=== PATIENT | female | born 1995 | race Caucasian/White ===

== ENCOUNTER 2019-10-21 10:30 | Emergency (ER) | payer OTHER ==
[~2019-10-21] VITALS: Ht 162.6 cm; Wt 80.7 kg
[2019-10-21 10:46] VITALS: BP_SYST 109
== END 2019-10-21 14:05 | disposition other institution (70) ==
LOC: SED 10:30 → SPU 12:54 → SED 14:05
DX: O26.892 Other specified pregnancy related conditions, second trimester (principal); Z04.1 Encounter for examination and observation following transport accident; Z3A.24 24 weeks gestation of pregnancy; V89.2XXA Person injured in unspecified motor-vehicle accident, traffic, initial encounter; Y93.89 Activity, other specified; Y92.89 Other specified places as the place of occurrence of the external cause; Y99.8 Other external cause status; Z53.21 Procedure and treatment not carried out due to patient leaving prior to being seen by health care provider

== ENCOUNTER 2020-01-06 19:25 | Observation (INO) | payer OTHER | END 2020-01-06 23:28 | disposition home or self-care (01) | LOC: SPU 19:25 | PROVIDERS: ADMIT Specialist; ATTEND Specialist | DX: O36.8130 Decreased fetal movements, third trimester, not applicable or unspecified (principal); O62.9 Abnormality of forces of labor, unspecified; Z3A.38 38 weeks gestation of pregnancy | CPT/HCPCS: 76819; G0378 ==

== ENCOUNTER 2020-01-09 13:34 | Outpatient (CLI) | payer OTHER, SELFPAY ==
--- NOTE | 2020-01-13 13:35 | NUR ---
Patient called [facility] for her COVID-19 "Negative" test results. She was instructed to follow preventive measures ([place] [employer]). Patient verbalizes understanding.
== END 2020-01-09 20:00 | disposition home or self-care (01) ==
LOC: SLB 13:34 → EDSTATUS 01-20 12:44
PROVIDERS: ATTEND Specialist
DX: Z20.828 Contact with and (suspected) exposure to other viral communicable diseases (principal)
CPT/HCPCS: U0003-CS

== ENCOUNTER 2020-01-18 11:12 | Inpatient (IN) | payer OTHER, SELFPAY ==
[~2020-01-18] VITALS: Ht 175.3 cm; Wt 83.9 kg
[2020-01-18] MEDS ORDERED: TERBUTALINE SULFATE 1 MG/ML VIAL SUBCUT ONE (11:30)
[2020-01-18] MEDS ORDERED: OXYTOCIN/0.9 % SODIUM CHLORIDE 1,000 ML IV SCH (11:30)
[2020-01-18] MEDS ORDERED: LR 1,000 ML IV SCH ×2 (11:30→19:15)
[2020-01-18 11:55] LABS: BASOPHILS % (AUTO) 0.2 % (0.0-2.0); EOSINOPHILS % (AUTO) 0.3 % (0.0-4.0); HEMATOCRIT 38.8 % (36-48); HEMOGLOBIN 13.1 g/dL (12.0-16.0); LYMPHOCYTES # (AUTO) 1.4 K/uL (1.0-5.5); LYMPHOCYTES % (AUTO) 13.2 % (20.5-51.5); MEAN CORPUSCULAR HEMOGLOBIN 30 pg (27-31); MEAN CORPUSCULAR HGB CONC 34 % (32-36); MEAN CORPUSCULAR VOLUME 88 fL (79.0-98.0); MONOCYTES # (AUTO) 0.4 K/uL (0.0-1.0); MONOCYTES % (AUTO) 3.6 % (1.7-9.3); NEUTROPHILS # (AUTO) 9.1 K/uL (1.8-7.7); NEUTROPHILS % (AUTO) 82.7 % (40.0-70.0); PLATELET COUNT (AUTO) 170 K/uL (130-430); RED BLOOD CELL COUNT(AUTO) 4.43 MIL/uL (4.2-6.2); RED CELL DISTRIBUTION WIDTH 13.9 % (9.0-15.0)
[2020-01-18] MEDS ORDERED: NALOXONE HCL 0.4 MG/ML AMP (NARCAN) IVP PRN ×3 (12:15→19:30)
[2020-01-18] MEDS ORDERED: ONDANSETRON HCL 4 MG/2 ML VIAL IVP PRN ×2 (12:15→19:30)
[2020-01-18] MEDS ORDERED: DIPHENHYDRAMINE INJ 50 MG/ML VIAL IVP PRN (12:15)
[2020-01-18] MEDS ORDERED: FENT2mCg/mL-ROPIVA0.2%/NS EPID 200 ML EP SCH (12:15)
[2020-01-18] MEDS ORDERED: fentaNYL CITRATE/PF 100 MCG/2 ML AMP ONE (12:23)
[2020-01-18] MEDS ORDERED: ROPIVACAINE HCL/PF 0.2% 200 ML ONE (12:24)
[2020-01-18 13:43] VITALS: BP_SYST 133
[2020-01-18] MEDS ORDERED: FLU VACC QS2020-21 (6 mos & up) 0.5 ML/SYRINGE I.M. PRN (14:00)
[2020-01-18] MEDS ORDERED: CEFAZOLIN 2 GM IVPB PREMIX 50 ML IV ONE (17:15)
[2020-01-18] MEDS ORDERED: ONDANSETRON HCL 4 MG/2 ML VIAL IVP ONE (18:34)
[2020-01-18] MEDS ORDERED: MORPHINE SULFATE 10MG/10ML PF AMP EP ONE (18:34)
[2020-01-18] MEDS ORDERED: OXYTOCIN 10 UNIT/ML VIAL IV ONE (18:34)
[2020-01-18] MEDS ORDERED: LR 1,000 ML IV.SOLN IV ONE (18:34)
[2020-01-18] MEDS ORDERED: NS IRRIG SOLN 1000 ML IR ONE (18:34)
[2020-01-18] MEDS ORDERED: METOCLOPRAMIDE HCL 10 MG/2 ML VIAL IVP ONE (18:34)
[2020-01-18] MEDS ORDERED: ANUSOL 1 EA SUPP.RECT (PREPARATION H) RC PRN (19:15)
[2020-01-18] MEDS ORDERED: DOCUSATE SODIUM 100 MG CAPSULE PO PRN (19:15)
[2020-01-18] MEDS ORDERED: LANOLIN 7 GM OINT. TP PRN (19:15)
[2020-01-18] MEDS ORDERED: OXYCODONE/ACETAMINOPHEN *10*mg/325 mg TABLET PO PRN (19:15)
[2020-01-18] MEDS ORDERED: HYDROcodone/ACETAMIN 5-325 MG TAB (NORCO/ VICODIN) PO PRN (19:15)
[2020-01-18] MEDS ORDERED: MEASLES,MUMPS&RUBELLA VACC/PF 12500 UNIT/0.5 ML VIAL SUBQ PRN (19:15)
[2020-01-18] MEDS ORDERED: DIPH-TET-PERTUS Vaccine 0.5 ML VIAL (ADACEL) I.M. PRN (19:15)
[2020-01-18] MEDS ORDERED: RHO(D) IMMUNE GLOBULIN/MALTOSE 1500 UNITS/1.3 ML (WINHRO) IM PRN (19:15)
[2020-01-18] MEDS ORDERED: SENNOSIDES/DOCUSATE SODIUM 1 TAB TABLET(SENOKOT-S) PO PRN (19:15)
[2020-01-18] MEDS ORDERED: TEMAZEPAM 15 MG CAPSULE PO PRN (19:15)
[2020-01-18] MEDS ORDERED: BISACODYL 10 MG/SUPPOSITORY RC PRN (19:15)
[2020-01-18 19:24] VITALS: BP_SYST 108
[2020-01-18] MEDS ORDERED: MORPHINE SULFATE 10MG/10ML PF AMP EP SCH (19:30)
[2020-01-18] MEDS ORDERED: KETOROLAC TROMETHAMINE 60 MG/2 ML VIAL IM PRN (19:30)
[2020-01-18] MEDS ORDERED: DIPHENHYDRAMINE INJ 50 MG/ML VIAL IM PRN (19:30)
[2020-01-18] MEDS ORDERED: MEPERIDINE HCL/PF 25 MG/ML DISP.SYRIN IVP ONE (20:15)
[2020-01-18] MEDS ORDERED: MEPERIDINE HCL/PF 25 MG/ML DISP.SYRIN ONE (20:26)
[2020-01-18] MEDS: OXYTOCIN/0.9 % SODIUM CHLORIDE 1,000 ML IV SCH (21:50)
[2020-01-19] MEDS: CEFAZOLIN 1 GM IVPB PREMIX 50 ML IV SCH ×3 (06:01→12:04)
[2020-01-19] MEDS: KETOROLAC TROMETHAMINE 30 MG VIAL IVP SCH ×3 (06:03→17:53)
[2020-01-19] MEDS: OXYTOCIN/0.9 % SODIUM CHLORIDE 1,000 ML IV SCH (06:10)
[2020-01-19 06:45] LABS: BASOPHILS % (AUTO) 0.1 % (0.0-2.0); LYMPHOCYTES # (AUTO) 2.1 K/uL (1.0-5.5); LYMPHOCYTES % (AUTO) 11.6 % (20.5-51.5); MEAN CORPUSCULAR HEMOGLOBIN 29 pg (27-31); MEAN CORPUSCULAR HGB CONC 33 % (32-36); MEAN CORPUSCULAR VOLUME 89 fL (79.0-98.0); MONOCYTES # (AUTO) 1.1 K/uL (0.0-1.0); NEUTROPHILS # (AUTO) 14.6 K/uL (1.8-7.7); NEUTROPHILS % (AUTO) 82.3 % (40.0-70.0); PLATELET COUNT (AUTO) 139 K/uL (130-430); RED BLOOD CELL COUNT(AUTO) 3.73 MIL/uL (4.2-6.2); RED CELL DISTRIBUTION WIDTH 14.2 % (9.0-15.0); WHITE BLOOD COUNT (AUTO) 17.7 K/uL (4.8-10.8)
[2020-01-19] MEDS: SIMETHICONE 80 MG TAB.CHEW PO PRN (16:33)
[2020-01-19] MEDS: OXYCODONE/ACETAMINOPHEN 5-325 TABLET PO PRN ×2 (16:34→23:45)
[2020-01-19] MEDS: IBUPROFEN 600 MG TABLET PO SCH (23:45)
[2020-01-20] MEDS: IBUPROFEN 600 MG TABLET PO SCH ×2 (06:25→12:19)
[2020-01-20] MEDS: SIMETHICONE 80 MG TAB.CHEW PO PRN (12:19)
[2020-01-20] MEDS: OXYCODONE/ACETAMINOPHEN 5-325 TABLET PO PRN (14:06)
== END 2020-01-20 14:20 | disposition home or self-care (01) | DRG 787 ==
LOC: SPU 11:12
PROVIDERS: ADMIT Specialist; ATTEND Specialist
PROC: 10D00Z1 Extraction of Products of Conception, Low, Open Approach (ICD-10-PCS; principal; 2020-01-18 18:34)
DX: O33.9 Maternal care for disproportion, unspecified (principal); D62 Acute posthemorrhagic anemia; O62.2 Other uterine inertia; O32.4XX0 Maternal care for high head at term, not applicable or unspecified; Z37.0 Single live birth; Z3A.39 39 weeks gestation of pregnancy
CPT/HCPCS: 36415; 81002-TC; 85025; 86592; 86886; 86900; 86901; 94760; J0690; J1200; J1885; J2175; J2274; J2405; J2590; J2765; J3010; J7120

== ENCOUNTER 2022-04-23 02:03 | Emergency (ER) | payer BC, OTHER ==
[~2022-04-23] VITALS: Ht 165.1 cm; Wt 72.6 kg
[2022-04-23 02:15] VITALS: BP_SYST 136
--- NOTE | 2022-04-23 02:15 | NUR ---
Patient to ER bed 05 to gown for evaluation. Side rails up. Report given to YAHAIRA REYES.
--- NOTE | 2022-04-23 02:19 | NUR ---
Patient to room #5, informed of plan of care at this time. Lt eye swelling and brusing noted s/p beer can being tossed. no s/s of distress noted, MD at bedside for exam.
[2022-04-23] MEDS ORDERED: ACETAMINOPHEN 500 MG TABLET PO ONE (02:30)
--- NOTE | 2022-04-23 02:30 | NUR ---
Patient ambulated to bathroom and back to bed. Ice pack given at this time.
--- NOTE | 2022-04-23 02:54 | NUR ---
Patient to radiology department via wheel chair.
--- NOTE | 2022-04-23 03:08 | NUR ---
Returned from radiology department, awaiting MD review.
[2022-04-23] MEDS ORDERED: NACL 0.9% 1,000 ML IV ONE (03:45)
[2022-04-23] MEDS ORDERED: METOCLOPRAMIDE HCL 10 MG/2 ML VIAL IVP ONE (03:45)
--- NOTE | 2022-04-23 04:43 | NUR ---
MD WAS AT BEDSIDE TALKING WITH PATIENT. IVF INFUSING WELL PER ORDER, DENIES NAUSEA AT THIS TIME, FAMILY REMAINS AT BEDSIDE.
[2022-04-23] MEDS ORDERED: TOBR3.5O2 LEFT EYE (05:08)
[2022-04-23] MEDS ORDERED: NAPR-686 PO (05:08)
[2022-04-23] MEDS ORDERED: BACI15OI13 TP (05:10)
[2022-04-23] MEDS ORDERED: DIPHTH,PERTUSS(ACELL),TET VAC 0.5 ML VIAL (Tdap) I.M. ONE (05:30)
[2022-04-23 05:58] VITALS: BP_SYST 127
--- NOTE | 2022-04-23 06:03 | NUR ---
IVF DONE, HL REMOVED, ACI GIVEN. REMAINS STABLE FOR DISCHARGE HOME WITH FAMILY.
== END 2022-04-23 06:05 | disposition home or self-care (01) ==
LOC: SED 02:03
DX: S00.12XA Contusion of left eyelid and periocular area, initial encounter (principal); H57.04 Mydriasis; Z79.899 Other long term (current) drug therapy; X58.XXXA Exposure to other specified factors, initial encounter; Y93.89 Activity, other specified; Y92.89 Other specified places as the place of occurrence of the external cause; Y99.8 Other external cause status
CPT/HCPCS: 99285; 96374; 70450; 96361; 76376; 90715; 81025; 90471; J2765; J7030